=== PATIENT | male | born 1990 | race Caucasian/White ===

== ENCOUNTER 2022-11-07 16:43 | Emergency (ER) | payer SELFPAY ==
[2022-11-07 16:43] VITALS: BP 97/55; PULSE 114; TEMP 36.4; O2SAT 91; BMI 40.4
--- NOTE | 2022-11-07 17:00 | XRR_ITS ---
PROCEDURE INFORMATION: Exam: XR Abdomen Exam date and time: 11/07/2022 5:29 PM Age: 32 years old Clinical indication: Abdominal pain; Acute; Additional info: N/v/d TECHNIQUE: Imaging protocol: Radiologic exam of the abdomen. Views: Frontal supine view of the abdomen. 1 View. COMPARISON: No relevant prior studies available. FINDINGS: Gastrointestinal tract: Normal. No bowel dilation. Bones/joints: Unremarkable. XR/XR abdomen 1V* [id number] IMPRESSION: No acute findings.
--- NOTE | 2022-11-07 17:01 | W.ED.ABDPA2 ---
HPI - Abdominal Pain General: Chief Complaint: Abdominal Pain Stated Complaint: abd pain Time Seen by Provider: 11/07/22 16:51 History of Present Illness: Patient presents to the ER by EMS with complaints of abdominal pain, nausea vomiting diarrhea since noon today. Patient states he was out playing corn hole all day yesterday getting sweaty and started having leg cramps. Today at approximately noon he had sudden onset abdominal pain got sick at his stomach and had diarrhea. Patient states he may have ingested some very bad orange juice. MD elicited complaint: abdominal pain Pertinent past history: none Onset (ago): day(s) (Today at noon) Pain Consistency: now resolved Location: Diffuse Severity: moderate Migration to: no migration Exacerbating factors: nothing Relieving factors: nothing Associated Symptoms: Reports no associated symptoms, diarrhea, nausea and vomiting; Denies chills, dysuria and fever(s) Review of Systems General: Reports: 10 or more systems reviewed and unremarkable except in HPI and below Const: Denies: fever(s) or chills Eyes: Denies: change in vision ENMT: Denies: throat pain or odynophagia Card: Denies: chest pain, palpitations or irregular heart rhythm Resp: Denies: dyspnea, productive cough or non-productive cough GI: Reports: abdominal pain, nausea, vomiting and diarrhea : Denies: flank pain, difficulty urinating or dysuria Musc: Denies: neck pain or back pain Skin/Breast: Denies: rash or pruritus Neuro: Denies: headache(s), numbness in extremities or weakness in extremities Psych: Denies: anxiety, depression or mood swings Endo: Denies: polyuria, polydipsia or tired all the time Lakhwinder/Lymph: Denies: easy bruising or easy bleeding [facility] PFSH: Social History Smoking and tobacco status: never smoked Physical Exam Const: COMMON NORMALS: no acute distress, average body habitus, patient oriented x3, no limitations, healthy appearing, alert and well nourished HENMT: COMMON NORMALS: normocephalic, atraumatic, hearing grossly normal bilaterally, external ears normal, Normal external nose present and moist oral mucous membranes HEAD & SCALP: normocephalic and atraumatic NOSE: Normal external nose present EXTERNAL EAR: Yes external ears normal Neck/C-Spine: COMMON NORMALS: full ROM, no lymphadenopathy, supple, no meningeal signs, no JVD and Thyroid normal THYROID: Thyroid normal Chest: COMMONS NORMALS: normal inspection of the chest and normal palpation of entire chest wall Resp: COMMON NORMALS: normal respiratory effort, No retractions, No use of accessory muscles and clear to auscultation bilaterally AUSCULTATION: clear to auscultation bilaterally Cardio: COMMON NORMALS: no JVD GI: COMMON NORMALS: Normal to inspection, nondistended, normoactive bowel sounds present, Soft to palpation, non-tender, No hepatosplenomegaly present and no masses PALPATION: Yes Soft to palpation and Yes No hepatosplenomegaly present : COMMON NORMALS: Yes no CVA tenderness BLADDER/KIDNEY EXAM: Yes no CVA tenderness Back/Pelvis: COMMON NORMALS: no CVA tenderness Extremity: COMMON NORMALS: normal to inspection Neuro: COMMON NORMALS: patient oriented x3 SENSORIUM/ORIENTATION: Yes alert MENINGEAL SIGNS: Yes no meningeal signs Course Vital Signs: Vital signs: Vital Signs Temperature 97.5 F L 11/07/22 16:43 Pulse Rate 102 H 11/07/22 19:53 Respiratory Rate 18 11/07/22 19:53 Blood Pressure 107/68 11/07/22 19:53 Pulse Oximetry 94 11/07/22 19:53 Oxygen Delivery Me thod 11/07/22 19:53 MDM - Abdominal Pain Medical Decision Making Patient presents with abdominal pain and nausea vomiting diarrhea since noon today. Upon exam patient was resting in bed in no acute distress. After exam lab work was ordered as well as imaging. Lab work did show a white count of 26.3 a hemoglobin of 18.5 hematocrit of 55.2 and a platelet count of 569, metabolic panel showed a sodium 134 potassium 4.5 BUN and creatinine of 10 and 1.4 lactic acid of 2.1 and procalcitonin of 0.25 magnesium of 1.6, urinalysis showed pH of 8, 3+ protein, 1+ glucose, trace leukocyte Estrace negative for nitrates, 10-15 squamous epithelial cells, plain film abdomen was unremarkable, a contrasted CT scan of the abdomen pelvis was obtained which showed findings suggestive of gastroenterocolitis. Patient received IV fluids during his stay here. Patient did not have any vomiting or diarrhea. These findings was explained in detail to patient and family. Patient will be discharged home and is to follow-up with family practice within the next week for repeat labs to make for sure that they are improving. Differential Diagnosis Likely abdominal pain and gastroenteritis; Unlikely acute appendicitis, calculus of kidney, constipation, diverticulitis or endometriosis Lab Data 11/07/22 17:20 11/07/22 17:20 Labs/Radiology: Radiology Impressions Abdomen X-Ray 11/07/22 17:00 IMPRESSION: No acute findings. Abdomen/Pelvis CT 11/07/22 18:27 IMPRESSION: 1. Prominent fluid in the stomach, small bowel and ascending colon suggestive of a gastroenterocolitis. 2. Small amount of nonspecific fluid in the pelvis. 3. Hepatic steatosis. 4. Diverticulosis without diverticulitis. Laboratory Results WBC 26.3 10^3/uL (4.0-10.0) H 11/07/22 17:20 RBC 6.56 10^6/uL (4.1-5.3) H 11/07/22 17:20 Hgb 18.5 g/dL (11.7-16.6) H 11/07/22 17:20 Hct 55.2 % (42.0-52.0) H 11/07/22 17:20 MCV 84.1 fl (80-94) 11/07/22 17:20 MCH 28.2 pg (28.0-34.0) 11/07/22 17:20 MCHC 33.5 g/dL (30.0-36.0) 11/07/22 17:20 RDW 13.2 % (12.1-15.1) 11/07/22 17:20 Plt Count 569 10^3/cmm (130-400) H 11/07/22 17:20 MPV 9.3 fL (7.4-10.4) 11/07/22 17:20 Neut % (Auto) 90.0 % 11/07/22 17:20 Lymph % (Auto) 4.6 % 11/07/22 17:20 [place] % (Auto) 4.5 % 11/07/22 17:20 Eos % (Auto) 0.1 % 11/07/22 17:20 Baso % (Auto) 0.2 % 11/07/22 17:20 Neut # (Auto) 23.65 10^3/uL (1.8-7.7) H 11/07/22 17:20 Lymph # (Auto) 1.2 10^3/uL (0.8-4.8) 11/07/22 17:20 [place] # (Auto) 1.2 10^3/uL (0.2-0.9) H 11/07/22 17:20 Eos # (Auto) 0.0 10^3/uL (0.0-0.8) 11/07/22 17:20 Baso # (Auto) 0.1 10^3/uL (0.0-0.1) 11/07/22 17:20 Nucleated RBC % (auto) 0 % 11/07/22 17:20 Nucleated RBCs # 0.0 /100WBC 11/07/22 17:20 Sodium 134 mmol/L (136-145) L 11/07/22 17:20 Potassium 4.5 mmol/L (3.5-5.1) 11/07/22 17:20 Chloride 102 mmol/L (98-107) 11/07/22 17:20 Carbon Dioxide 19 mmol/L (22-29) L 11/07/22 17:20 Anion Gap 17.5 (5-19) 11/07/22 17:20 BUN 10 mg/dL (6-20) 11/07/22 17:20 Creatinine 1.4 mg/dL (0.7-1.2) H 11/07/22 17:20 GFR Calculation 59.5 mL/min (90-130) L 11/07/22 17:20 Glucose 142 mg/dL (65-115) H 11/07/22 17:20 Calculated Osmolality 279 mOsm/kg (285-295) L 11/07/22 17:20 Lactic Acid 2.1 mmol/L (0.5-2.2) 11/07/22 19:00 Calcium 9.6 mg/dL (8.5-10.5) 11/07/22 17:20 Magnesium 1.6 mg/dL (1.7-2.3) L 11/07/22 17:20 Total Bilirubin 0.4 mg/dL (0.15-1.2) 11/07/22 17:20 AST 21 U/L (0-40) 11/07/22 17:20 ALT 34 U/L (0-41) 11/07/22 17:20 Alkaline Phosphatase 80 U/L (40-130) 11/07/22 17:20 Total Protein 7.6 g/dL (6.6-8.7) 11/07/22 17:20 Albumin 4.0 g/dL (3.5-5.2) 11/07/22 17:20 Globulin 3.6 g/dL (1.3-4.6) 11/07/22 17:20 Lipase 34 U/L (13-60) 11/07/22 17:20 Procalcitonin 0.25 ng/mL (0-0.5) 11/07/22 17:20 Urine Color Yellow (Yellow) 11/07/22 18:10 Urine Appearance Hazy (CLEAR) A 11/07/22 18:10 Urine pH 8 (5-7) H 11/07/22 18:10 Ur Specific [place] 1.010 (1.005-1.030) 11/07/22 18:10 Urine Protein 3+ (Negative) H 11/07/22 18:10 Urine Glucose (UA) 1+ (Normal) H 11/07/22 18:10 Urine Ketones Negative (Negative) 11/07/22 18:10 Urine Blood Neg (Negative) 11/07/22 18:10 Urine Nitrate Negative (Negative) 11/07/22 18:10 Urine Bilirubin Neg (Negative) 11/07/22 18:10 Prot Sulfosalicylic Acd Positive (Negative) 11/07/22 18:10 Urine Urobilinogen Neg mg/dL (Negative) 11/07/22 18:10 Ur Leukocyte Esterase Trace (Negative) H 11/07/22 18:10 Urine RBC 0-4 /hpf (0-2) H 11/07/22 18:10 Urine WBC 5-10 /hpf (0-5) H 11/07/22 18:10 Ur Squamous Epith Cells 10-15 /hpf (0-5) H 11/07/22 18:10 Amorphous Sediment 4+ /hpf 11/07/22 18:10 Urine Bacteria 2+ /hpf (NONE) H 11/07/22 18:10 Hyaline Casts 5-10 /lpf H 11/07/22 18:10 Urine Mucus 4+ /hpf 11/07/22 18:10 Discharge Plan Discharge Patient Disposition: Home Clinical Impression: Nausea vomiting and diarrhea Condition: Stable Prescriptions: No Action Ed A-Hist DM 4-10-10 mg tablet 1 tab PO Q6H PRN (Reason: cold symptoms) Qty: 30 0RF azithromycin [Zithromax Z-Sanjiv] 250 mg tablet See Rx Instructions PO .COMPLEX Qty: 6 0RF Rx Instructions: take 500 mg today (day 1), then 250 mg for 4 days (days 2-5) PO promethazine-DM 6.25-15 mg/5 mL syrup 5 ml PO Q6H PRN (Reason: cough) Qty: 180 0RF methylprednisolone [Medrol (Sanjiv)] 4 mg tablets,dose pack See Rx Instructions PO PER PKG DIR Qty: 21 0RF Rx Instructions: PO PER PKG DIR cefdinir 300 mg capsule 300 mg PO BID 10 Days Qty: 20 0RF Discharge Orders: Discharge ED (Routine); Ordered 11/07/22 Ordered By: Rodger Nazario Referrals: Daniela Spangler FNP [Primary Care Provider] - 1 week Discharge Diet: Advance as tolerated Discharge Activity: Resume usual activity Patient Instructions: Abdominal Pain (ED), Acute Nausea and Vomiting (ED), Diarrhea - Adult Coding Level of Care Code ED Service [employer] Supervisor for Lynne Qureshi
[2022-11-07] MEDS: sodium chloride 0.9% 1,000 ML 999 ML IV (17:20)
[2022-11-07 17:31] LABS: Basophils # 0.1 10^3/uL (0.0-0.1); Basophils % 0.2 %; Eosinophils % 0.1 %; Hematocrit 55.2 % (42.0-52.0); Hemoglobin 18.5 g/dL (11.7-16.6); Lymphocytes # 1.2 10^3/uL (0.8-4.8); Lymphocytes % 4.6 %; Mean Corpuscular HGB Conc 33.5 g/dL (30.0-36.0); Mean Corpuscular Hemoglobin 28.2 pg (28.0-34.0); Mean Corpuscular Volume 84.1 fl (80-94); Mean Platelet Volume 9.3 fL (7.4-10.4); Monocytes # 1.2 10^3/uL (0.2-0.9); Monocytes % 4.5 %; Neutrophils # 23.65 10^3/uL (1.8-7.7); Nucleated Red Blood Cells % 0 %; Platelet Count 569 10^3/cmm (130-400); Red Blood Count 6.56 10^6/uL (4.1-5.3); Red Cell Distribution Width 13.2 % (12.1-15.1); White Blood Count 26.3 10^3/uL (4.0-10.0)
[2022-11-07 18:08] LABS: Alanine Aminotransferase 34 U/L (0-41); Alkaline Phosphatase 80 U/L (40-130); Anion Gap 17.5 (5-19); Aspartate Amino Transferase 21 U/L (0-40); Blood Urea Nitrogen 10 mg/dL (6-20); Calcium 9.6 mg/dL (8.5-10.5); Carbon Dioxide 19 mmol/L (22-29); Chloride 102 mmol/L (98-107); Globulin 3.6 g/dL (1.3-4.6); Glomerular Filtration Rate 59.5 mL/min (90-130); Glucose 142 mg/dL (65-115); Lipase 34 U/L (13-60); Magnesium 1.6 mg/dL (1.7-2.3); Osmolality Calculated 279 mOsm/kg (285-295); Potassium 4.5 mmol/L (3.5-5.1); Sodium 134 mmol/L (136-145); Total Bilirubin 0.4 mg/dL (0.15-1.2); Total Protein 7.6 g/dL (6.6-8.7)
--- NOTE | 2022-11-07 18:27 | CTR_ITS ---
PROCEDURE INFORMATION: Exam: CT Abdomen And Pelvis With Contrast Exam date and time: 11/07/2022 7:19 PM Age: 32 years old Clinical indication: Abdominal pain; Generalized; Prior surgery; Surgery date: 6+ months; Surgery type: Appy; Additional info: Abd pain, n/v/d, wbc 26k TECHNIQUE: Imaging protocol: Computed tomography of the abdomen and pelvis with contrast. Radiation optimization: All CT scans at this facility use at least one of these dose optimization techniques: automated exposure control; mA and/or kV adjustment per patient size (includes targeted exams where dose is matched to clinical indication); or iterative reconstruction. Contrast material: OMNI 350; Contrast volume: 100 ml; Contrast route: INTRAVENOUS (IV); REPORTING DATA: Count of CT and Cardiac NM exams in prior 12 months: This patient has received 0 known CTs and 0 known cardiac nuclear medicine studies in the 12 months prior to the current study. COMPARISON: CR (ABDOMEN, ) 11/07/2022 5:29 PM RADIATION DOSE METRICS: Total DLP (mGy-cm): 1383.63 FINDINGS: Liver: Hepatic steatosis. Gallbladder and bile ducts: Normal. No calcified stones. No ductal dilation. Pancreas: Normal. No ductal dilation. Spleen: Normal. No splenomegaly. Adrenal glands: Normal. No mass. Kidneys and ureters: Normal. No hydronephrosis. Stomach and bowel: Prominent fluid in the stomach, small bowel and ascending colon suggestive of a gastroenterocolitis. Diverticulosis without diverticulitis. Appendix: No evidence of appendicitis. Intraperitoneal space: Unremarkable. No free air. No significant fluid collection. Vasculature: Unremarkable. No abdominal aortic aneurysm. Lymph nodes: Unremarkable. No enlarged lymph nodes. Urinary bladder: Unremarkable as visualized. Reproductive: Unremarkable as visualized. Bones/joints: Unremarkable. No acute fracture. Soft tissues: Unremarkable. Other findings: Small amount of nonspecific fluid in the pelvis. CT/CT abdomen pelvis w con* [id number] IMPRESSION: 1. Prominent fluid in the stomach, small bowel and ascending colon suggestive of a gastroenterocolitis. 2. Small amount of nonspecific fluid in the pelvis. 3. Hepatic steatosis. 4. Diverticulosis without diverticulitis.
[2022-11-07 18:33] VITALS: BP 127/84; PULSE 105; RESP 16; O2SAT 94
[2022-11-07 18:37] LABS: Add Urine Microscopic? YES; Bilirubin Urine Neg (Negative); Blood Urine Neg (Negative); Glucose Urine UA 1+ (Normal); Ketones Urine Negative (Negative); Leukocyte Esterase Urine Trace (Negative); Nitrate Urine Negative (Negative); Protein Urine 3+ (Negative); Sulfosalicylic Acid Urine Positive (Negative); Urine Appearance Hazy (CLEAR); Urine Color Yellow (Yellow); Urobilinogen Urine Neg (Negative); pH Urine 8 (5-7)
[2022-11-07 18:38] LABS: Add Urine Culture? No; Amorphous Sediment Urine 4+ /hpf; Bacteria Urine 2+ /hpf; Mucus Urine 4+ /hpf; RBC Urine 0-4 /hpf (0-2)
[2022-11-07] MEDS: iohexol 350 mg/mL 500 mL Btl (per mL) IV (19:28)
[2022-11-07 19:35] LABS: Lactic Sepsis W/Reflex 2.1 mmol/L (0.5-2.2)
[2022-11-07 19:53] VITALS: BP 107/68; PULSE 102; RESP 18; O2SAT 94
[2022-11-07 20:02] LABS: Procalcitonin 0.25 ng/mL (0-0.5)
[2022-11-07 20:32] VITALS: BP 111/81; PULSE 100; RESP 17; O2SAT 95
[2022-11-07 21:29] LABS: Reflex Lactate Order REFLEX LACTIC ORDERD
== END 2022-11-07 20:33 | disposition home or self-care (01) ==
PROVIDERS: Emergency Provider Emergency Medicine; PCP Nurse Practitioner Family
DX: R11.2 Nausea with vomiting, unspecified (principal); R19.7 Diarrhea, unspecified; K57.90 Diverticulosis of intestine, part unspecified, without perforation or abscess without bleeding
CPT/HCPCS: 36415; 74018; 74177; 80053; 81001; 83605; 83690; 83735; 84145; 85025; 87040; 96360; 99285; J7030; Q9967

== ENCOUNTER → 2022-11-11 11:45 | Outpatient (BNVA) | payer SELFPAY | PROVIDERS: PCP Nurse Practitioner Family; Visit Provider Nurse Practitioner Family | DX: R11.2 Nausea with vomiting, unspecified (principal); R19.7 Diarrhea, unspecified | CPT/HCPCS: 80053; 85025 ==

== ENCOUNTER → 2024-08-01 10:13 | Outpatient (BNVA) | payer MEDICAID, SELFPAY | PROVIDERS: PCP Nurse Practitioner Family; Visit Provider Nurse Practitioner Family | DX: S43.401A Unspecified sprain of right shoulder joint, initial encounter (principal); X50.0XXA Overexertion from strenuous movement or load, initial encounter; Y99.0 Civilian activity done for income or pay; M25.811 Other specified joint disorders, right shoulder | CPT/HCPCS: 73030 ==

== ENCOUNTER → 2024-09-17 11:35 | Outpatient (BNVA) | payer MEDICAID, SELFPAY | PROVIDERS: PCP Nurse Practitioner Family; Visit Provider Nurse Practitioner Family | DX: R50.9 Fever, unspecified (principal) | CPT/HCPCS: 87400; 87426; 87880 ==